=== PATIENT | female | born 1970 | race Caucasian/White ===

== ENCOUNTER 2016-08-31 21:26 | Emergency (ER) | payer BC ==
[~2016-08-31] VITALS: Ht 157.5 cm; Wt 85.5 kg
[~2016-08-31 21:26] MED LIST: CIPR500T4 PO; FAMO-96 PO; HYDR-3498 PO; NAPR-260 PO; ORPH100T PO; OXYC-279 PO; PHEN-537 PO
[2016-08-31 21:33] VITALS: Ht 157.5 cm; Wt 85.5 kg
[2016-08-31] MEDS ORDERED: CLINDAMYCIN 300 MG INJ IV ONE (23:30)
--- NOTE | 2016-09-01 00:26 | RADRPT ---
PROCEDURE: CHEST - 1 VIEW CLINICAL INDICATION: 45-year-old female with chest pain. TECHNIQUE: A single frontal AP portable view of the chest was performed. The images were reviewed on a PACS workstation. COMPARISON: None. FINDINGS: The cardiomediastinal silhouette has a normal appearance. There is a shallow inspiration. There is no evidence for an infiltrate. There is no evidence for congestive heart failure. There is no evide nce for pneumothorax. The osseous structures are intact. IMPRESSION: No evidence for active cardiopulmonary disease. .Matt East MD, MD Date Time Electronically viewed and signed by .Matt East MD, on 09/01/2016 00:25 .M/
[2016-09-01] MEDS ORDERED: CLIN-73 PO (01:01)
[2016-09-01] MEDS ORDERED: ACET500C5 PO (01:02)
[2016-09-01 01:47] VITALS: BP 138/88; PULSE 88; RESP 18
--- NOTE | 2016-09-01 03:04 | ERD ---
ER Documentation Chief Complaint Date/Time DATE: 09/01/16 TIME: 02:44 Chief Complaint RIGHT BREAST ABSCESS X7 DAYS PAIN GOES TO ARM HPI Patient is a 45-year-old female with a past medical history of HIV (does not know CD4 count), OA, fibromyalgia, carpal tunnel, who presents the emergency department for concerns of an abscess to her right breast and arm pain. Patient states that initially she had a small lesion to her right inner breast however the lesion has been growing. Patient reports picking at the lesion. Patient says lesion started draining yellow discharge and bleeding earlier today. Patient states that she is having pain in her right arm. Patient denies any falls or trauma. Patient also reports chest pain. Patient states the pain is in her mid chest and radiates to her right arm. Patient describes the pain to be sharp. Patient states the pain started 3 days ago. Patient denies any shortness of breath, right upper extremity pain, diaphoresis or loss of consciousness. Patient does report taking Percocet for her symptoms. Patient denies any fevers or chills. Patient denied any leg swelling, recent surgery, recent prolonged travel. ROS All systems reviewed and are negative except as per history of present illness. Medications Home Meds Active Scripts Acetaminophen* (Tylophen*) 500 Mg Capsule, 1 CAP PO Q6H Y for PAIN AND OR ELEVATED TEMP, #20 CAP Prov:ARAVIND THIBODEAUX PA-C 09/01/16 Clindamycin Hcl* (Clindamycin Hcl*) 300 Mg Capsule, 300 MG PO TID for 10 Days, CAP Prov:ARAVIND THIBODEAUX PA-C 09/01/16 Phenazopyridine Hcl* (Pyridium*) 100 Mg Tab, 100 MG PO TID Y for URINARY PAIN, # 6 TAB Prov:LUCY SANDOVAL PA-C 02/08/16 Naproxen* (Naprosyn*) 500 Mg Tablet, 500 MG PO BID Y for PAIN AND/OR INFLAMMATION, #30 TAB Prov:LUCY SANDOVAL PA-C 02/08/16 Ciprofloxacin Hcl* (Ciprofloxacin Hcl*) 500 Mg Tablet, 500 MG PO BID for 7 Days , TAB Prov:LUCY SANDOVAL PA-C 02/08/16 Oxycodone HCl/Acetaminophen (Percocet 5-325 mg Tablet) 1 Each Tablet, 1 EACH PO QHS, #7 TAB Prov:SANDOVALLUCYAKIN Larsen PA-C 01/20/16 Naproxen* (Naprosyn*) 500 Mg Tablet, 500 MG PO BID Y for PAIN AND/OR INFLAMMATION, #30 TAB Prov:MANAGUELOD,AMADA P PROFESSOR OF SURGERY 11/26/15 Famotidine* (Pepcid*) 20 Mg Tablet, 20 MG PO BID for 10 Days, TAB Prov:MANAGUELOD,AMADA P PROFESSOR OF SURGERY 11/26/15 Orphenadrine Citrate (Norflex) 100 Mg Tablet.sa, 100 MG PO BID for 4 Days, TAB.SA Prov:JENEVAN C 08/26/15 Hydrocodone Bit-Acetaminophen* (Golva*) 5-325 Mg Tab, 1 TAB PO Q6 Y for PAIN, # 20 TAB Prov:JENEVAN C 08/26/15 Allergies Allergies: Coded Allergies: ketorolac (Verified Allergy, Unknown, SOB, CP, 01/19/16) PMhx/Soc History of Surgery: Yes (HYSTERECTOMY) Anesthesia Reaction: No Hx Neurological Disorder: No Hx Respiratory Disorders: No Hx Cardiac Disorders: No Hx Psychiatric Problems: No Hx Miscellaneous Medical Probl: No (HIV) Hx Alcohol Use: No Hx Substance Use: No Hx Tobacco Use: No Smoking Status: Never smoker Physical Exam Vitals Vital Signs Date Time Temp Pulse Resp B/P Pulse Ox O2 Delivery O2 Flow Rate FiO2 09/01/16 01:47 88 18 138/88 98 08/31/16 21:33 98.3 85 18 155/85 98 Physical Exam GENERAL: Well-developed, well-nourished female. Appears in no acute distress. Speaking in full sentences. HEAD: Normocephalic, atraumatic. EYES: Pupils are equally reactive bilaterally. EOMs grossly intact. No conjunctival erythema. ENT: Moist mucous membranes. No uvula deviation. No kissing tonsils. NECK: Supple. No meningismus. Normal range of motion of the neck. CHEST: Tender to palpation of the mid chest, right chest wall. Pain is reproducible. BREAST: Two erythematous slightly raised lesions noted in the patient's R inner breast at 2 oclock and 4 oclock. Active discharge noted from lesions. No warmth. LUNG: Clear to auscultation bilaterally. No rhonchi, wheezing, rales or coarse breath sounds. HEART: Regular rate and rhythm. No murmurs, rubs or gallops. ABDOMEN: Soft, nontender, and nondistended. Positive bowel sounds in all four quadrants. No rebound tenderness, no guarding. (-) McBurney's point tenderness. No CVA tenderness. EXTREMITIES: Equal pulses bilaterally. No peripheral clubbing, cyanosis or edema. No unilateral leg swelling. NEUROLOGIC: Alert and oriented. Moving all four extremities without any difficulty. Normal speech. Steady gait. SKIN: Normal color. Warm and dry. No rashes or lesions. Results 24 hrs Laboratory Tests Test 08/31/16 23:13 Troponin I < 0.012ng/ml Current Medications Medications (Trade) Dose Ordered Sig/Denis Route PRN Reason Start Time Stop Time Status Last Admin Dose Admin Clindamycin Phosphate (Cleocin) 600 mg ONCE ONCE IV 08/31/16 23:30 08/31/16 23:31 DC 08/31/16 23:49 Procedures/MDM ED COURSE: The patient was stable throughout ED course. I kept the patient and/or family informed of laboratory and diagnostic imaging results throughout the ED course. EKG: Read by Dr. Lee, attending physician. EKG shows normal sinus rhythm at a rate of [address] elevations or T wave changes were noted. DIAGNOSTIC IMAGING: Read by radiologist. DIAGNOSTIC IMAGING REPORT Patient: ALLEN FUNG : 1970 Age: 45 Sex: F MR #: [id number] DOS: 08/31/16 2243 Ordering MD: ARAVIND THIBODEAUX PA-C Location: [facility] Room/Bed: PROCEDURE: CHEST - 1 VIEW CLINICAL INDICATION: 45-year-old female with chest pain. TECHNIQUE: A single frontal AP portable view of the chest was performed. The images were reviewed on a PACS workstation. COMPARISON: None. FINDINGS: The cardiomediastinal silhouette has a normal appearance. There is a shallow inspiration. There is no evidence for an infiltrate. There is no evidence for congestive heart failure. There is no evidence for pneumothorax. The osseous structures are intact. IMPRESSION: No evidence for active cardiopulmonary disease. .Matt East MD, Date Time Electronically viewed and signed by .Matt East MD, on 09/01/2016 00:25 .M/ CC: ARAVIND THIBODEAUX PA-C PROCEDURES: None. MEDICATIONS GIVEN: Clindamycin IV Patient tolerated medication well with no adverse reactions. MEDICAL DECISION MAKING: This is a 45-year-old female with a history of HIV, fibromyalgia, OA, carpal tunnel presents to the ED for numerous concerns including lesions on her right breast as well as right arm pain and chest pain. States the chest pain started 3 days ago. Patient denies any shortness of breath, nausea, vomiting, LOC or diaphoresis. Patient denied any leg swelling, recent surgeries, travel, exogenous estrogen use. Vital signs were reviewed. Patient was afebrile. Patient was not hypoxic. Cardiac exam was normal. Lung exam was normal. Pain was reproduced with palpation. EKG was within normal limits. Low suspicion for acute coronary syndrome, arrhythmia or pericarditis. CXR was within normal limits. Low suspicion for pneumothorax, pneumonia or pleural effusion. Low suspicion for a PE or DVT. She was given IV clindamycin here in the ED given history of HIV. At this time, patient's presentation is most consistent with chest wall pain and MRSA infection. Patient will be sent home with a prescription of clindamycin p.o. Patient was given instructions to return to the ED for wound recheck in 2 days. Low suspicion for deep space infection, necrotizing fasciitis, breast mass. PRESCRIPTIONS: Clindamycin, Tylenol DISCHARGE: At this time, patient is stable for discharge and outpatient management. Patient was given a copy of all blood work and imaging studies obtained today. Patient was advised to return to the ED for wound recheck in 2 days. I have instructed the patient to follow-up with his/her primary care physician in 1-2 days. If symptoms persist, patient may need to see a specialist for further examinations and testing. I have instructed the patient to promptly return to the ER at any time for any new or worsening symptoms including increased increased pain, fever, nausea, vomiting, numbness, weakness, diaphoresis or LOC. The patient and/or family expressed understanding of and agreement with this plan. All questions were answered. Home care instructions were provided. Departure Diagnosis: Primary Impression: MRSA (methicillin resistant Staphylococcus aureus) Additional Impression: Chest wall tenderness Condition: Stable Patient Instructions: Mrsa Skin Infection, Suspected Or Confirmed Referrals: [facility] YOU HAVE RECEIVED A MEDICAL SCREENING EXAM AND THE RESULTS INDICATE THAT YOU DO NOT HAVE A CONDITION THAT REQUIRES URGENT TREATMENT IN THE EMERGENCY DEPARTMENT. FURTHER EVALUATION AND TREATMENT OF YOUR CONDITION CAN WAIT UNTIL YOU ARE SEEN IN YOUR DOCTORS OFFICE WITHIN THE NEXT 1-2 DAYS. IT IS YOUR RESPONSIBILITY TO MAKE AN APPOINTMENT FOR FOLOW-UP CARE. IF YOU HAVE A PRIMARY DOCTOR --you should call your primary doctor and schedule an appointment IF YOU DO NOT HAVE A PRIMARY DOCTOR YOU CAN CALL OUR PHYSICIAN REFERRAL HOTLINE AT IF YOU CAN NOT AFFORD TO SEE A PHYSICIAN YOU CAN CHOSE FROM THE FOLLOWING [facility] [address] [facility] [address] [facility] [address] [facility] [address] [facility] [address] [facility]. [facility] [address] [facility] [facility] YOU HAVE RECEIVED A MEDICAL SCREENING EXAM AND THE RESULTS INDICATE THAT YOU DO NOT HAVE A CONDITION THAT REQUIRES URGENT TREATMENT IN THE EMERGENCY DEPARTMENT. FURTHER EVALUATION AND TREATMENT OF YOUR CONDITION CAN WAIT UNTIL YOU ARE SEEN IN YOUR DOCTORS OFFICE WITHIN THE NEXT 1-2 DAYS. IT IS YOUR RESPONSIBILITY TO MAKE AN APPOINTMENT FOR FOLOW-UP CARE. IF YOU HAVE A PRIMARY DOCTOR --you should call your primary doctor and schedule and appointment IF YOU DO NOT HAVE A PRIMARY DOCTOR YOU CAN CALL OUR PHYSICIAN REFERRAL HOTLINE AT . IF YOU CAN NOT AFFORD TO SEE A PHYSICIAN YOU CAN CHOSE FROM THE FOLLOWING [facility] INSTITUTIONS: [facility] [address] [place] [address] [facility] [address] [place] [address] [facility] + [facility] [address] [place] [address] Additional Instructions: Call your primary care doctor TOMORROW for an appointment during the next 1-2 days.See the doctor sooner or return here if your condition worsens before your appointment time. Return in 2 days for wound recheck. Return sooner for any new or worsening symptoms including but not limited to severe pain, worsening redness, swelling, fevers or chills. Take full course of antibiotics. ARAVIND THIBODEAUX PA-C Sep 01, 2016 02:54
== END 2016-09-01 01:48 | disposition home or self-care (01) ==
LOC: FTE 21:26
DX: R07.89 Other chest pain (principal); B95.62 Methicillin resistant Staphylococcus aureus infection as the cause of diseases classified elsewhere
CPT/HCPCS: 71010; 84484; 93005; 96374; 99285; Z7610

== ENCOUNTER 2016-12-17 20:09 | Emergency (ER) | payer BC ==
[~2016-12-17] VITALS: Ht 157.5 cm; Wt 83.0 kg
[~2016-12-17 20:09] MED LIST changes: +ACET500C5 PO; +CLIN-73 PO
[2016-12-17 20:31] VITALS: Ht 157.5 cm; Wt 83.0 kg
[2016-12-17] MEDS ORDERED: ALBUTEROL 0.083% (NEB) 2.5 MG/3 ML AMP HHN ONE (23:53)
[2016-12-18] MEDS ORDERED: IPRATROPIUM (NEB) 0.5 MG/2.5 ML AMP INH ONE
[2016-12-18] MEDS ORDERED: ONDANSETRON 4 MG INJ IV STA (00:29)
[2016-12-18] MEDS ORDERED: morphine 2 MG INJ IV ONE (00:30)
[2016-12-18 01:04] LABS: ABNORMAL IP MESSAGE 1; BASOPHILS % 0.2 % (0.0-2.0); EOSINOPHILS # 0.1 10^3/ul (0.0-0.5); EOSINOPHILS % 0.9 % (0.0-7.0); HEMATOCRIT 40.1 % (37.0-47.0); HEMOGLOBIN 13.2 g/dl (12.0-16.0); LYMPHOCYTES # 6.3 10^3/ul (0.8-2.9); LYMPHOCYTES % 42.3 % (15.0-51.0); MEAN CORPUSCULAR HEMOGLOBIN 28.4 pg (29.0-33.0); MEAN CORPUSCULAR HGB CONC 32.9 g/dl (32.0-37.0); MEAN CORPUSCULAR VOLUME 86.2 fl (82.0-101.0); MONOCYTE # 0.9 10^3/ul (0.3-0.9); MONOCYTES % 5.7 % (0.0-11.0); NEUTROPHIL # 7.5 10^3/ul (1.6-7.5); NEUTROPHILS % 50.5 % (39.0-77.0); PLATELET COUNT 304 10^3/UL (140-415); RED BLOOD COUNT 4.65 10^6/ul (4.20-5.40); WHITE BLOOD COUNT 14.8 10^3/ul (4.8-10.8)
[2016-12-18 01:12] LABS: POSITIVE DIFF @See below
[2016-12-18 01:22] LABS: ALANINE AMINOTRANSFERASE 40 IU/L (13-69); ALBUMIN 4.1 g/dl (3.3-4.9); ALBUMIN/GLOBULIN RATIO 0.91; ALKALINE PHOSPHATASE 147 IU/L (42-121); ANION GAP 12 (8-16); ASPARTATE AMINO TRANSFERASE 27 IU/L (15-46); BILIRUBIN,INDIRECT 0.4 mg/dl (0-1.1); BILIRUBIN,TOTAL 0.4 mg/dl (0.2-1.3); BLOOD UREA NITROGEN 20 mg/dl (7-20); CALCIUM 9.6 mg/dl (8.4-10.2); CARBON DIOXIDE 29 mmol/L (21-31); CHLORIDE 107 mmol/L (97-110); CREATININE 0.75 mg/dl (0.44-1.00); GLUCOSE 117 mg/dl (70-220); POTASSIUM 3.6 mmol/L (3.5-5.1); SODIUM 144 mmol/L (135-144); TOTAL PROTEIN 8.6 g/dl (6.1-8.1)
[2016-12-18 01:30] LABS: B-TYPE NATRIURETIC PEPTIDE 79 PG/ML (0-125)
[2016-12-18 01:35] LABS: TROPONIN-I < 0.012 ng/ml (0.00-0.12)
--- NOTE | 2016-12-18 01:38 | RADRPT ---
PROCEDURE: XR Chest. CLINICAL INDICATION: Dyspnea. TECHNIQUE: Single frontal view of the chest. COMPARISON: Chest dated 08/31/2016. FINDINGS: The cardiomediastinal silhouette is within normal limits. Mild atherosclerotic calcifications in the thoracic aorta. The lungs are clear. No signs of pleural fluid or pneumothorax are seen. The osseou s structures and soft tissues are unremarkable. IMPRESSION: No evidence for active cardiopulmonary disease. RPTAT: [facility] Physician Nory Date Time Electronically viewed and signed by Physician Nory on 12/18/2016 01:38 RS/
[2016-12-18] MEDS ORDERED: AZIT250T94 PO (01:56)
[2016-12-18] MEDS ORDERED: ALBU18HF INHALATION (01:56)
--- NOTE | 2016-12-18 02:01 | ERD ---
ER Documentation Chief Complaint Chief Complaint CP RAD TO BACK WITH SOB AND COUGH X 3 DAYS. COLD SYMPTOMS. NAUSEA HPI This is a 38-year-old female complaints of chest wall pain that radiates to her back with shortness of the cough for 3 days. Chest wall pain is reproducible to touch, mild to moderate intensity exacerbated by cough. Shortness of breath is also exacerbated by cough. Cough is mildly productive. No fevers or chills. Mild congestion. No sick contacts. No other current issues. ROS All systems reviewed and are negative except as per history of present illness. Medications Home Meds Active Scripts Albuterol Sulfate* (Ventolin HFA*) 18 Gm Hfa.aer.ad, 2 PUFF INHALATION Q4H, #1 INHALER Prov:GREG JONES 12/18/16 Azithromycin* (Zithromax*) 250 Mg Tablet, 250 MG PO .ZPACK DIRECTED, #6 TAB TAKE 500 MG (2 TABS) THE FIRST DAY THEN 250 MG (1 TAB) DAYS 2-5 Prov:GREG JONES 12/18/16 Acetaminophen* (Tylophen*) 500 Mg Capsule, 1 CAP PO Q6H Y for PAIN AND OR ELEVATED TEMP, #20 CAP Prov:ARAVIND THIBODEAUX PA-C 09/01/16 Clindamycin Hcl* (Clindamycin Hcl*) 300 Mg Capsule, 300 MG PO TID for 10 Days, CAP Prov:ARAVIND THIBODEAUX PA-C 09/01/16 Phenazopyridine Hcl* (Pyridium*) 100 Mg Tab, 100 MG PO TID Y for URINARY PAIN, # 6 TAB Prov:LUCY SANDOVAL PA-C 02/08/16 Naproxen* (Naprosyn*) 500 Mg Tablet, 500 MG PO BID Y for PAIN AND/OR INFLAMMATION, #30 TAB Prov:LUCY SANDOVAL PA-C 02/08/16 Ciprofloxacin Hcl* (Ciprofloxacin Hcl*) 500 Mg Tablet, 500 MG PO BID for 7 Days , TAB Prov:LUCY SANDOVAL PA-C 02/08/16 Oxycodone HCl/Acetaminophen (Percocet 5-325 mg Tablet) 1 Each Tablet, 1 EACH PO QHS, #7 TAB Prov:LUCY SANDOVAL PA-C 01/20/16 Naproxen* (Naprosyn*) 500 Mg Tablet, 500 MG PO BID Y for PAIN AND/OR INFLAMMATION, #30 TAB Prov:MANAGUELOD,AMADA P MANAGER CONTRACT 11/26/15 Famotidine* (Pepcid*) 20 Mg Tablet, 20 MG PO BID for 10 Days, TAB Prov:MANAGUELOD,AMADA P MANAGER CONTRACT 11/26/15 Orphenadrine Citrate (Norflex) 100 Mg Tablet.sa, 100 MG PO BID for 4 Days, TAB.SA Prov:BERONICA LIEUNICE Rodriguez 08/26/15 Hydrocodone Bit-Acetaminophen* (Chester*) 5-325 Mg Tab, 1 TAB PO Q6 Y for PAIN, # 20 TAB Prov:EVAN LI C 08/26/15 Allergies Allergies: Coded Allergies: ketorolac (Verified Allergy, Unknown, SOB, CP, 01/19/16) PMhx/Soc History of Surgery: Yes (TOTAL HYSTERECTOMY,APPENDECTOMY,CHOLECYSTECTOMY,C- SECTION) Anesthesia Reaction: No Hx Neurological Disorder: No Hx Respiratory Disorders: Yes (ASTHMA) Hx Cardiac Disorders: No Hx Psychiatric Problems: No Hx Miscellaneous Medical Probl: No (HIV) Hx Alcohol Use: No Hx Substance Use: No Hx Tobacco Use: No Smoking Status: Never smoker Physical Exam Vitals Vital Signs Date Time Temp Pulse Resp B/P Pulse Ox O2 Delivery O2 Flow Rate FiO2 12/18/16 00:08 94 20 98 21 12/17/16 20:31 98.4 98 22 132/84 98 Physical Exam Const: [] Head: Atraumatic Eyes: Normal Conjunctiva ENT: Normal External Ears, Nose and Mouth. Neck: Full range of motion..~ No meningismus. Resp: Clear to auscultation bilaterally Cardio: Regular rate and rhythm, no murmurs Abd: Soft, non tender, non distended. Normal bowel sounds Skin: No petechiae or rashes Back: No midline or flank tenderness Ext: No cyanosis, or edema Neur: Awake and alert Psych: Normal Mood and Affect Result Diagram: 12/18/16 0046 12/18/166 Results 24 hrs Laboratory Tests Test 12/18/16 00:42 12/18/16 00:46 Lactic Acid Level 1.3mmol/L White Blood Count 14.810^3/ul Red Blood Count 4.6510^6/ul Hemoglobin 13.2g/dl Hematocrit 40.1% Mean Corpuscular Volume 86.2fl Mean Corpuscular Hemoglobin 28.4pg Mean Corpuscular Hemoglobin Concent 32.9g/dl Red Cell Distribution Width 14.0% Platelet Count 75565^3/UL Mean Platelet Volume 10.0fl Neutrophils % 50.5% Lymphocytes % 42.3% Monocytes % 5.7% Eosinophils % 0.9% Basophils % 0.2% Nucleated Red Blood Cells % 0.0/100WBC Neutrophils # 7.510^3/ul Lymphocytes # 6.310^3/ul Monocytes # 0.910^3/ul Eosinophils # 0.110^3/ul Basophils # 0.010^3/ul Nucleated Red Blood Cells # 0.010^3/ul Sodium Level 144mmol/L Potassium Level 3.6mmol/L Chloride Level 107mmol/L Carbon Dioxide Level 29mmol/L Anion Gap 12 Blood Urea Nitrogen 20mg/dl Creatinine 0.75mg/dl Glucose Level 117mg/dl Calcium Level 9.6mg/dl Total Bilirubin 0.4mg/dl Direct Bilirubin 0.00mg/dl Indirect Bilirubin 0.4mg/dl Aspartate Amino Transf (AST/SGOT) 27IU/L Alanine Aminotransferase (ALT/SGPT) 40IU/L Alkaline Phosphatase 147IU/L Troponin I < 0.012ng/ml B-Type Natriuretic Peptide 79PG/ML Total Protein 8.6g/dl Albumin 4.1g/dl Globulin 4.50g/dl Albumin/Globulin Ratio 0.91 Current Medications Medications (Trade) Dose Ordered Sig/Denis Route PRN Reason Start Time Stop Time Status Last Admin Dose Admin Albuterol (Proventil 0.083% (Neb)) 5 mg ONCE ONCE HHN 12/17/16 23:53 12/17/16 23:54 DC 12/18/16 00:02 Ipratropium Morley (Atrovent 0.02% (Neb)) 0.5 mg ONCE ONCE INH 12/18/16 00:00 12/18/16 00:01 DC 12/18/16 00:02 Morphine Sulfate (morphine) 2 mg ONCE ONCE IV 12/18/16 00:30 12/18/16 00:31 DC 12/18/16 01:11 Ondansetron HCl (Zofran Inj) 4 mg ONCE STAT IV 10/25/17 00:29 12/18/16 00:30 DC 12/18/16 01:11 Procedures/MDM EKG: Rate/Rhythm: [Normal Sinus Rhythm] QRS, ST, T-waves: [No changes consistent w/ acute ischemia] Impression: [No evidence of ischemia or arrhythmia] Chest X-ray 1V Interpreted by me: Soft Tissue: No acute abnormalities Bones: No acute abnormalities Mediastinum/Cardiac Silhouette/Lungs: [No acute abnormalities] Patient's respiratory status has stabilized while in the department and is appropriate for outpatient work up. Exam and work up not consistent w/ impending respiratory failure or cardiovascular collapse. Patient's thoracic symptoms have stabilized while in the department and are stable for outpatient follow up. Exam and work up not consistent w/ ischemia, arrhythmia, PE or dissection. Departure Diagnosis: Primary Impression: Chest pain Chest pain type: unspecified Qualified Code: R07.9 - Chest pain, unspecified type Condition: Stable Patient Instructions: Bronchitis With Wheezing (Adult) GREG JONES Dec 18, 2016 02:01
== END 2016-12-18 02:56 | disposition home or self-care (01) ==
LOC: E/R 20:09
DX: R07.89 Other chest pain (principal); R40.2252 Coma scale, best verbal response, oriented, at arrival to emergency department; J45.909 Unspecified asthma, uncomplicated; R40.2142 Coma scale, eyes open, spontaneous, at arrival to emergency department; R40.2362 Coma scale, best motor response, obeys commands, at arrival to emergency department; R06.02 Shortness of breath
CPT/HCPCS: 36415; 71010; 80053; 83605; 83880; 84484; 85025; 87040; 93005; 94664; 96374; 96375; 99285; J2270; J2405; Z7610